=== PATIENT | female | born 1980 | race Caucasian/White ===

== ENCOUNTER 2021-11-18 16:24 | Outpatient (CLI) | payer OTHER, SELFPAY ==
[2021-11-18 20:05] LABS: Cholesterol* 257 mg/dL (90-199)
[2021-11-18 20:06] LABS: HDL Cholesterol* 55 mg/dL (>=50); LDL Cholesterol Calculated 160 mg/dL (<100); Triglycerides* 212 mg/dL (40-149)
== END 2021-11-18 16:25 | disposition home or self-care (01) ==
LOC: NFLDREF 16:38
PROVIDERS: PCP Internal Medicine; Visit Provider Internal Medicine
DX: E78.5 Hyperlipidemia, unspecified (principal); F41.9 Anxiety disorder, unspecified
CPT/HCPCS: 80061

== ENCOUNTER 2022-12-09 08:15 | Outpatient (CLI) | payer OTHER, SELFPAY | END 2022-12-09 08:16 | disposition home or self-care (01) | LOC: NFLDREF 12-12 14:24 | PROVIDERS: PCP Internal Medicine; Referring Provider Internal Medicine; Visit Provider Internal Medicine | DX: E78.5 Hyperlipidemia, unspecified (principal) | CPT/HCPCS: 80061 ==

== ENCOUNTER 2023-01-21 11:15 | Outpatient (CLI) | payer OTHER, SELFPAY ==
--- NOTE | 2023-01-21 11:30 | CRLHL7_ITS ---
For Patients: As a result of the Century Cures Act, medical imaging exams and procedure reports are released immediately into your electronic medical record. You may view this report before your referring provider. If you have questions, please contact your health care provider. BILATERAL SCREENING MAMMOGRAM WITH COMPUTER-AIDED DETECTION AND TOMOSYNTHESIS TECHNIQUE: CC and MLO views were obtained. These mammographic images have been obtained using full-field digital technique. These mammographic images were interpreted with the benefit of computer-aided detection. Breast Tomosynthesis was used in this interpretation. COMPARISON FILM: Baseline. FINDINGS: The breasts are heterogeneously dense, which may obscure small masses IMPRESSION: There is no radiographic evidence for malignancy. ASSESSMENT: BI-RADS Category 1: Negative RECOMMENDATION: Routine screening mammogram in 1 year. A lay language report of this examination will be provided to the patient. Angel Foote M.D. Diagnostic Radiologist [email or web address] GRACIE/Dictated by: Angel Foote MD @ 01/21/2023 12:12:00 PM (Electronically Signed)
== END 2023-01-21 11:16 | disposition home or self-care (01) ==
LOC: MAMMO 11:16
PROVIDERS: PCP Internal Medicine; Visit Provider Internal Medicine
DX: Z12.31 Encounter for screening mammogram for malignant neoplasm of breast (principal); R92.2 Inconclusive mammogram
CPT/HCPCS: 77063; 77067

== ENCOUNTER 2024-02-23 16:12 | Outpatient (CLI) | payer OTHER, SELFPAY ==
--- OUTSIDE RECORDS SUMMARY | 2024-02-23 16:23 | XMS_ITS | Encounter Summary ---
Author Organization [employer] Address [address] [place] [address] Care Team Providers Care Power Press Supervisor Name Role Phone Lady Vines MD Primary Care Provider [phone] Encounter Details Date Type Department Care Team (Late st Contact Info) Description 03/14/2016 Refill Order [facility] [address] [place], [place] [id number] Lady Vines MD [address] [facility] [address] [place] [address] Social History Tobacco Use Types Packs/Day Years Used Date Smoking Tobacco: Former Cigarettes Q uit: 12/19/2009 Smokeless Tobacco: Never Alcohol Use Standard Drinks/Week Comments Yes 3.3 (1 standard drink = 0.6 oz p ure alcohol) Wine/Occ Sex and Gender Information Value Date Recorded Sex Assigned at Not on file Gender Identity Not on file Sexual Orientation Not on file documented as of this encounter Nursing Notes * Kostas Persaud CMA - 03/17/2016 9:54 AM CST Letter sent to ptBrandon Persaud CMA 03/17/2016, 9:54 AM FOLDER documented in this encounter Plan of Treatment Not on file documented as of this encounter Visit Diagnoses Diagnosis Encounter for long-term (current) use of medications- Primary Encounter for long-term (current) use of other medications documented in this encounter Care Teams Power Press Supervisor Relationship Specialty Start Date End Date Lady Vines MD [address] [address] PCP - General 09/22/06 documented as of this encounter
--- OUTSIDE RECORDS SUMMARY | 2024-02-23 16:23 | XMS_ITS | Clinical Summary ---
Author Organization [facility] Address [address] [place] [address] Care Team Providers Care Matrix Drier Tender Name Role Phone Teresa Vines MD Primary Care Provider [phone] Source Comments You are receiving this document as you are listed as the primary care provider,follow-up provider, or the patient has been referred to you for consultation.This is in compliance with the Medicare and[facility] EHR Incentive Program,which states Providers who transition their patient to another setting of careor provider of care or refers their patient to another provider of care shouldprovide summary care record for each transition of care or referral. [employer] Allergies Active Allergy Reactions Criticality Noted Date Comments Amoxicillin 06/24/2005 Penicillins 06/24/2005 Medications Medication Sig Dispensed Refills Start Date End Date Status nortriptyline (PAMELOR) 10 MG capsuleIndications:I rritable bowel syndrome with diarrhea Take 1-2 Capsules by mouth every evening. 90 Capsule 3 12/29/2017 Active venlafaxine (EFFEXORXR) 150 MG 24 hour release capsuleIndications:M oderate episode of recurrent major depressive disorder (HRC) Take 1 Capsule by mouth daily. 30 Capsule 05/18/2019 Active Active Problems Problem Noted Date Diagnosed Date Mild episode of recurrent major depressive disor becky 10/05/2017 Irritable bowel syndrome with diarrhea 8 Subjective vision disturbance 07/27/2014 Myopia of both eyes 07/27/2014 Screening for malignant neoplasm of cervix 11/10 Overview (12/10/2016): 2007 NILM 2009 NILM 2010 NILM 2013 NILM 2017 NILM ,neg HPV 36 y.o. Plan: Cotesting 06/2021 ; Pap test history Anxiety 06/01/2012 Vitamin D deficiency 09/22/2006 Hyperlipidemia 09/22/2006 Major depression, recurrent 05/13/2006 Overview (11/01/2013): Phq9 11/01/13 Resolved Problems Problem Noted Date Diagnosed Date Resolved Date Group B Streptococcus marvin r, +RV culture, currently 05/29/2011 08/11/2011 Overview (12/10/2016): Group B Streptococcus carrier, +RV culture, currently - Vancomycin treatment recommended Supervision of high-risk 10/28/2010 08/11/2011 Overview (12/10/2016): EDC 06/26/11 by LMP - U/S confirmed ( 06/25/11) HCW CNM, ANW Juvenile arthritis- will f/u with Press Assistant And Feeder, no meds now ; Supervision of other high-risk (V23.89) Effusion of lower leg joint 07/10/2006 05/01/2015 JRA (juvenile rheumatoid arthritis) 07/08/2006 05/01/2015 General counseling for initi ation of other contraceptive measures 09/18/2005 10/28/2010 Overview (09/18/2005): using tri sprintec Immunizations Name Administration Dates Next Due Flu Vac (3+ yrs) 03/27/2010,03/21/2009 Flu Vac Preserv Free (3+yrs) 01/13/2011 H1n1 Miv [employer] 4+ Yr Trac e Preservative (Injected) 03/21/2009 Influenza IIV4 (Quadrivalent) 0.5mL (71880) 12/19,02/02/2014,01/21/2013 Influenza Vaccine (3+years) ([facility]) 012 Tdap 03/27/2010 Family History Medical History Relation Name Comments Diabetes Father type 1 diabetes on insulin Diabetes, Type II Father Hyperlipidemia Father Hypertension Father Anxiety Mother Hyperlipidemia Mother Hypertension Mother Depression Brother 2 Cataract Maternal Grandmother Coronary Artery Disease Maternal Grandmother Cancer, Other Paternal Grandmother pancre atic Glaucoma Negative Family History Macular Degeneration Negative Family History Relation Name Status Comments Father Alive Mother Alive Brother 1 Alive Brother 2 Maternal Grandmother Paternal Grandmother Social History Tobacco Use Types Packs/Day Years Used Date Smoking Tobacco: Former Cigarettes Q uit: 12/19/2009 Smokeless Tobacco: Former Alcohol Use Standard Drinks/Week Comments Yes 3.3 (1 standard drink = 0.6 oz p ure alcohol) Wine/Occ Sex and Gender Information Value Date Recorded Sex Assigned at Not on file Gender Identity Not on file Sexual Orientation Not on file Last Filed Vital Signs Vital Sign Reading Time Taken Comments Blood Pressure 113/73 12/29/2017 4:03 PM CDT Pulse 71 12/29/2017 4:03 PM CDT Temperature 36.9 ??C (98.5 ??F) 04/06/2013 4:28 PM CS T Respiratory Rate 14 05/22/2015 8:58 AM METER CHANGES RECORDS CLERK Oxygen Saturation 100% 01/11/2010 5:42 PM CDT Inhaled Oxygen Concentration - - Weight 69.9 kg (154 lb) 07/23/2017 3:01 PM CDT Height 167.6 cm (5' 6) 07/07/2016 3:06 PM CDT Body Mass Index 24.86 07/07/2016 3:06 PM CDT Plan of Treatment Health Maintenance Due Date Last Done Comments Mammogram 1982 Adult Preventive Visit 07/07/2018 7, 05/01/2015, 11/01/2013, Additional history exists Cervical Cancer Screening 07/07/20212016, 11/01/2013, 11/01/2013, Additional history exists COVID-19 Vaccine ( season) 2023 08/23/2020, 07/26/2020 Influenza (#1) 2023 01/02/2020, 10/2019, 02/02/2019, Additional history exists DTaP/Tdap/Td (3 - Tdap) 03/21/2030 03/21/2020, 03/27 Zoster/Shingles (1 of 2) 01/15/2032 HIV Screening (Preventive Services) Completed 10/28/2010 Hep C Screening (Preventive Services) Completed 03/24/2011 HPV Vaccine Aged Out No longer eligi ble based on patient's age to complete this topic HepA Aged Out No longer eligi ble based on patient's age to complete this topic Hib Aged Out No longer eligi ble based on patient's age to complete this topic IPV (Polio) Aged Out No longer eligi ble based on patient's age to complete this topic Infant RSV Aged Out No longer eligi ble based on patient's age to complete this topic MCV4 Aged Out No longer eligi ble based on patient's age to complete this topic Pneumococcal Aged Out No longer eligi ble based on patient's age to complete this topic Procedures Procedure Name Priority Date/Time Associated Diagnosis Comments PAP TEST, ROUTINE Routine 07/07/2016 3:4 7 PM CDT Screening for malignant neoplasm of cervix HEPATITIS C ANTIBODY, WITH REFLEX Routine 03/24/2011 4:17 PM METER CHANGES RECORDS CLERK Supervision of normal first HIV ANTIBODY Routine 10/28/2010 2:57 PM CDT Supervision of other high-risk from Last 3 Months or Most Recently Relevant to Health Maintenance Results * Pap Test, Routine (07/07/2016 3:47 PM CDT) Cytology, Pap (NOTE) Security Developer Cytology Report Patient Name: KENDRA GARCIA Taken: 07/07/2016 Received: 07/08/2016 Reported: 07/18/2016 Physician(s): TERESA VINES ?Source of Specimen Pap Test, Routine Cervical/Endocervi tyesha: ?Specimen Adequacy ?Satisfactory for evaluation. ??Endocervical component absent. ? Final Cytologic Interpretation/Res ult NEGATIVE FOR INTRAEPITHELIAL LESION OR MALIGNANCY (NILM) ?? *Electronically Signed Out By PEPPER Vallecillo (ASCP)* PEPPER Vallecillo (ASCP) ? Pap Smear History Date of Last Menstrual Period: No LMP recorded ?? Microscopic Description Microscopic examination is performed. [facility] Department of Pathology [address] [place] [address] ??[id number] [facility] 07/07/2016 3:47 PM CDT 07/08/2016 1:07 PM CDT Teresa Vines MD LAB_1 Performing Organization Address [facility] Co de Phone Number [facility] [phone] * HEPATITIS C AB (03/24/2011 4:17 PM METER CHANGES RECORDS CLERK) Anti-HCV Non-Reacti ve NR [facility] Comment:Does Not Rule Out In fection with HCV 03/24/2011 4:17 PM METER CHANGES RECORDS CLERK 03/24/2011 4:20 PM METER CHANGES RECORDS CLERK Kevin Coley APRN, CNM LAB_1 Performing Organization Address [facility] de Phone Number [facility] [address] [phone] * HIV 1/2 ANTIBODY [0404] (10/28/2010 2:57 PM CDT) HIV 1/2 Antibody Negative (Non Reactive) NEGNR [facility] Comment: HIV Antibody testing may be falsely negative during the window period. If the patient has had recent exposure (within the past four weeks), consider contacting Infectious Diseases for clarification. 10/28/2010 2:57 PM CDT 10/28/2010 3:53 PM CDT Kevin Coley APRN, CNM LAB_1 Performing Organization Address [facility] de Phone Number [facility] [address] [phone] from Last 3 Months or Most Recently Relevant to Health Maintenance Advance Directives Documents on File Type Date Recorded Patient Signal Tower Operator Expl anation Advance Directives and Living Will 09/18/2005 Care Teams Matrix Drier Tender Relationship Specialty Start Date End Date Teresa Vines MD [address] [address] PCP - General 09/22/06
--- OUTSIDE RECORDS SUMMARY | 2024-02-23 16:23 | XMS_ITS | Clinical Summary ---
Author Organization [facility] Address [place], [place] [address] Care Team Providers Care Field Radio Operator Name Role Phone Kevin Coley [facility] Primary Care Provid er Allergies Active Allergy Reactions Criticality Noted Date Comments Amoxicillin Hives 06/29/2011 Penicillins Hives 06/29/2011 Medications Medication Sig Dispensed Refills Start Date End Date Status VIT/FE FUMARATE/FA ( ORAL) Take by mouth. Activ e ibuprofen (ADVIL; MOTRIN) 200 mg Cap Take 1-3 capsules by mouth every 6 hours if needed for Pain and Other (Specify) (For uterine cramping.). 100 capsule 0 07/03/2011 Active docusate (COLACE) 100 mg capsule Take 1 capsule by mouth once daily. 100 capsule 0 07/03/2011 Active ferrous sulfate, 65 mg elemental, 325 mg (65 mg iron) tablet Take 1 tablet by mouth once daily with a meal. 100 tablet 0 07/03/2011 Active oxyCODONE-acetami nophen, 5-325 mg, (PERCOCET) per tablet Take 1-2 tablets by mouth every 4 hours if needed for Pain. For severe pain. Max acetaminophen dose: 4000 mg in 24 hrs. 20 tablet 0 07/03/2011 Active Active Problems Problem Noted Date Diagnosed Date Anemia 07/03/2011 delivery delivered 07/03/2011 Supervision of normal first 06/30/2011 Failure to progress in labor 06/30/2011 Social History Tobacco Use Types Packs/Day Years Used Date Smoking Tobacco: Never Smokeless Tobacco: Never Alcohol Use Standard Drinks/Week Comments No 0 (1 standard drink = 0.6 oz pur e alcohol) Sex and Gender Information Value Date Recorded Sex Assigned at Not on file Gender Identity Not on file Sexual Orientation Not on file Obstetrics History Para Term AB IAB SAB Ectopic Multiple Livin g Live Births 1 Date Outcome GA Total Labor Labor/2nd/3rd Weight Sex Type Anes PTL Beata A1 A5 Name Clin Comments:System Genera oniel. Please review and update details. Last Filed Vital Signs Vital Sign Reading Time Taken Comments Blood Pressure 136/72 07/03/2011 8:00 AM CDT Pulse 61 07/03/2011 8:00 AM CDT Temperature 36.6 ??C (97.9 ??F) 07/03/2011 8:00 AM CD T Respiratory Rate 16 07/03/2011 8:00 AM CDT Oxygen Saturation 94% 07/01/2011 11:45 AM CDT Inhaled Oxygen Concentration - - Weight 87.5 kg (193 lb) 06/29/2011 11:59 PM CDT Height 167.6 cm (5' 6) 06/29/2011 11:59 PM CDT Body Mass Index 31.15 06/29/2011 11:59 PM CDT Plan of Treatment Not on file Advance Directives * Full Code (Latest Code Status on File) Date Activated Date Inactivated Comments 06/30/2011 3:52 PM 07/03/2011 4:24 PM * Full Code Date Activated Date Inactivated Comments 06/30/2011 12:57 AM 06/30/2011 2:30 PM * Full Code Date Activated Date Inactivated Comments 06/29/2011 11:57 PM 06/30/2011 12:57 AM Care Teams Field Radio Operator Relationship Specialty Start Date End Date Kevin Coley CNM PCP - General Certified Nurse Medication Assistant 05/20/11
== END 2024-02-23 16:13 | disposition home or self-care (01) ==
LOC: NFLDREF 16:22
PROVIDERS: PCP Internal Medicine; Visit Provider Internal Medicine
DX: E78.5 Hyperlipidemia, unspecified (principal)
CPT/HCPCS: 80061

== ENCOUNTER 2024-11-14 07:12 | Outpatient (CLI) | payer BC, SELFPAY | END 2024-11-14 07:13 | disposition home or self-care (01) | LOC: OP CLINIC 07:14 | PROVIDERS: PCP Internal Medicine; Visit Provider Surgery | DX: Z53.9 Procedure and treatment not carried out, unspecified reason (principal); Z83.719 Family history of colon polyps, unspecified ==

== ENCOUNTER 2025-02-21 07:53 | Outpatient (CLI) | payer BC, SELFPAY | END 2025-02-21 07:54 | disposition home or self-care (01) | LOC: NFLDREF 02-23 15:41 | PROVIDERS: PCP Internal Medicine; Referring Provider Internal Medicine; Visit Provider Internal Medicine | DX: E78.5 Hyperlipidemia, unspecified (principal); E66.9 Obesity, unspecified; Z68.32 Body mass index [BMI] 32.0-32.9, adult | CPT/HCPCS: 80061; 82947; 84443 ==

== ENCOUNTER 2025-03-06 08:08 | Outpatient (CLI) | payer BC, SELFPAY ==
--- NOTE | 2025-03-06 10:10 | P.ANES_ITS ---
Anesthesia Charges Start Date/Time Anesthesia Start Date: 03/06/25 Anesthesia Start Time: 09:34 Stop Date/Time Anesthesia Stop Date: 03/06/25 Anesthesia Stop Time: 10:08 Coding CPT Codes CPT Codes: MONTSERRAT LWR INTST NDSC NOS - 54917 ([id number]) P2 - PATIENT W/MILD SYST DISEASE, QK - MAINFRAME APPLICATIONS DEVELOPER 2-4 CNCRNT ANES PROC, QX - CIVIL STRUCTURAL DESIGNER SVC W/ MD MED DIRECTION
--- NOTE | 2025-03-06 10:10 | W.ANESCHARGE ---
Anesthesia Charges Start Date/Time Anesthesia Start Date: 03/06/25 Anesthesia Start Time: 09:34 Stop Date/Time Anesthesia Stop Date: 03/06/25 Anesthesia Stop Time: 10:08 Coding CPT Codes CPT Codes: MONTSERRAT LWR INTST NDSC NOS - 99945 ([id number]) P2 - PATIENT W/MILD SYST DISEASE, QK - MICROBIOLOGICAL LABORATORY TECHNICIAN 2-4 CNCRNT ANES PROC, QX - JEWELRY FACER SVC W/ MD MED DIRECTION
--- NOTE | 2025-03-06 13:03 | P.ANES_ITS ---
Anesthesia Charges Start Date/Time Anesthesia Start Date: 03/06/25 Anesthesia Start Time: 09:34 Stop Date/Time Anesthesia Stop Date: 03/06/25 Anesthesia Stop Time: 10:08 Coding CPT Codes CPT Codes: MONTSERRAT LWR INTST NDSC NOS - 02036 ([id number]) QK - SLOT KEY PERSON 2-4 CNCRNT MONTSERRAT PROC, QX - TRANSIT PLANNER SVC W/ MD MED DIRECTION, P2 - PATIENT W/MILD SYST DISEASE
--- NOTE | 2025-03-06 13:03 | W.ANESCHARGE ---
Anesthesia Charges Start Date/Time Anesthesia Start Date: 03/06/25 Anesthesia Start Time: 09:34 Stop Date/Time Anesthesia Stop Date: 03/06/25 Anesthesia Stop Time: 10:08 Coding CPT Codes CPT Codes: MONTSERRAT LWR INTST NDSC NOS - 49535 ([id number]) QK - PACK WORKER 2-4 CNCRNT MONTSERRAT PROC, QX - COLLATOR HAND SVC W/ MD MED DIRECTION, P2 - PATIENT W/MILD SYST DISEASE
== END 2025-03-06 08:09 | disposition home or self-care (01) ==
LOC: OP CLINIC 08:09
PROVIDERS: PCP Internal Medicine; Visit Provider Surgery
DX: Z12.11 Encounter for screening for malignant neoplasm of colon (principal); D12.3 Benign neoplasm of transverse colon; K62.89 Other specified diseases of anus and rectum; Z83.719 Family history of colon polyps, unspecified
CPT/HCPCS: 00811; 00812; 45380; 45385; J2704